=== PATIENT | female | born 1980 | race Caucasian/White ===

== ENCOUNTER 2019-10-14 09:19 | Outpatient (CLI) | payer BC, SELFPAY ==
--- NOTE | ~2019-10-14 | XR_ITS ---
EXAMINATION: XR chest 2V EXAM DATE: 10/14/2019 10:45 INDICATION: TECHNIQUE: Frontal and lateral projections of the chest obtained and reviewed. Comparison is made to prior examination from 04/21/2010. FINDINGS: The lungs are clear. There are no pleural effusions. The cardiomediastinal silhouette is within normal limits. There is no pneumothorax suspected. The bones and soft tissues are unremarkab le. IMPRESSION: Normal chest x-ray exam. Reviewed, dictated and finalized at location A. IMPRESSION: Normal chest x-ray exam.
[2019-10-14 10:41] LABS: Hematocrit 47.1 % (35.0-49.0); Hemoglobin 15.6 g/dL (12.0-15.0); Mean Corpuscular HGB Conc 33.1 g/dL (32.0-36.0); Mean Corpuscular Hemoglobin 32.3 pg (27.0-31.0); Mean Corpuscular Volume 97.5 fL (78.0-102.0); Mean Platelet Volume 12.2 fl (9.2-11.8); Platelet Count Result 173 K/mm3 (150-420); Red Blood Count 4.83 M/mm3 (4.20-5.40); Red Cell Distribution Width 11.7 % (11.6-14.4); White Blood Count 4.9 K/mm3 (4.8-10.8)
[2019-10-14 11:11] LABS: Band Neutrophils Percent 0 % (0-6); Basophils Absolute Manual 0.04 K/mm3 (0-0.1); Basophils Percent Manual 1 % (0-1); Eosinophils Absolute Manual 0.04 K/mm3 (0.02-0.5); Eosinophils Percent Manual 1 % (1-6); Lymphocytes Absolute Manual 1.96 K/mm3 (1.1-4.5); Lymphocytes Percent Manual 40 % (18-44); Monocytes Absolute Manual 0.93 K/mm3 (0.1-0.90); Monocytes Percent Manual 19 % (3-9); Neutrophils Absolute Manual 1.91 K/mm3 (1.7-7.2); Neutrophils Percent Manual 39 % (46-73); Platelet Estimate Adequate (Adequate); Total Cells Counted 100
[2019-10-14 11:38] LABS: Alanine Aminotransferase 21 U/L (14-59); Albumin Level 3.9 g/dL (3.4-5.0); Alkaline Phosphatase 62 U/L (46-116); Anion Gap 6 mmol/L (8-16); Aspartate Amino Transferase 19 U/L (15-37); Bilirubin,Total 0.2 mg/dL (0.00-1.00); Blood Urea Nitrogen 9 mg/dL (7-18); Calcium 8.7 mg/dL (8.5-10.1); Carbon Dioxide 30 mmol/L (21-32); Chloride 102 mmol/L (98-108); Estimated Glomerular Filt Rate > 60; Glucose 82 mg/dL (70-99); Lactate Dehydrogenase 137 U/L (81-234); Osmolality Calculated 283 mOsm/kg (285-295); Potassium 4.4 mmol/L (3.5-5.1); Sodium 138 mmol/L (136-145); Total Protein 6.8 g/dL (6.4-8.2)
[2019-10-15 18:19] LABS: SARS-CoV-2 RNA PCR Positive
== END 2019-10-14 09:20 | disposition home or self-care (01) ==
PROVIDERS: PCP Internal Medicine; Visit Provider Internal Medicine
DX: U07.1 COVID-19 (principal); R06.02 Shortness of breath; R05 Cough
CPT/HCPCS: 36415; 71046; 80053; 83615; 85025; 87635; C9803; U0003

== ENCOUNTER 2019-10-30 15:31 | Outpatient (CLI) | payer BC, SELFPAY ==
[2019-11-01 18:02] LABS: SARS-CoV-2 RNA PCR Positive
== END 2019-10-30 15:32 | disposition home or self-care (01) ==
LOC: CHSLAB 15:34
PROVIDERS: PCP Internal Medicine; Visit Provider Internal Medicine
DX: U07.1 COVID-19 (principal)
CPT/HCPCS: 87635; C9803; U0003

== ENCOUNTER 2019-11-06 14:47 | Outpatient (CLI) | payer BC, SELFPAY ==
[2019-11-07 12:28] LABS: SARS-CoV-2 RNA PCR Negative
== END 2019-11-06 14:48 | disposition home or self-care (01) ==
LOC: CHSLAB 14:49
PROVIDERS: PCP Internal Medicine; Visit Provider Internal Medicine
DX: Z20.828 Contact with and (suspected) exposure to other viral communicable diseases (principal)
CPT/HCPCS: 87635; C9803; U0003

== ENCOUNTER 2020-12-14 10:15 | Outpatient (CLI) | payer BC, SELFPAY ==
[2020-12-14 11:24] LABS: SARS-CoV-2 RNA PCR Negative (Negative)
== END 2020-12-14 10:16 | disposition home or self-care (01) ==
LOC: CHSLAB 10:18
PROVIDERS: PCP Internal Medicine; Visit Provider Internal Medicine
DX: J06.9 Acute upper respiratory infection, unspecified (principal); Z20.822 Contact with and (suspected) exposure to COVID-19
CPT/HCPCS: C9803; U0003; U0005

== ENCOUNTER 2021-03-14 12:49 | Outpatient (CLI) | payer BC, SELFPAY ==
--- NOTE | ~2021-03-14 | MM_ITS ---
EXAMINATION: MM screening matthew BI w ibis HISTORY: Screening mammogram TECHNIQUE: Craniocaudal and mediolateral oblique 3-D tomosynthesis images were obtained and synthetic 2-D images were generated. CAD analysis was submitted and interpreted. COMPARISON: No prior mammogram is available for comparison at this institution. BREAST PARENCHYMAL COMPOSITION: The breasts are heterogeneously dense, which may obscure small masses . FINDINGS: RIGHT BREAST: There is focal asymmetry in the middle third of the central breast. LEFT BREAST: There is no evidence of suspicious mass, calcification, or architectural distortion to s uggest malignancy. IMPRESSION: 1. Focal asymmetry of the right breast which may represent the patient's baseline however no comparis on is currently available. 2. Comparison with prior mammograms is necessary. BI-RADS Category 0: Incomplete: Needs comparison with prior mammograms. Reviewed, dictated and finalized at location A. OPERATOR IMPRESSION: 1. Focal asymmetry of the right breast which may represent the patient's baseli ne however no comparison is currently available. 2. Comparison with prior mammograms is necessary. BI-RADS Category 0: Incomplete: Needs comparison with prior mammograms.
== END 2021-03-14 12:50 | disposition home or self-care (01) ==
LOC: CHSIMG 12:50
PROVIDERS: PCP Internal Medicine; Visit Provider Student in an Organized Health Care Education/Training Program
DX: Z12.31 Encounter for screening mammogram for malignant neoplasm of breast (principal)
CPT/HCPCS: 77063; 77067

== ENCOUNTER 2021-03-18 08:53 | Outpatient (CLI) | payer BC, SELFPAY ==
--- NOTE | ~2021-03-18 | MMUS_ITS ---
EXAMINATION: MM diagnostic matthew RT w ibis, US breast RT limited HISTORY: Focal asymmetry of the right breast on baseline screening mammogram TECHNIQUE: Additional 3-D tomosynthesis images of the right breast were performed and synthetic 2-D i mages were generated. CAD analysis was submitted and interpreted. High resolution limited right breas t ultrasound was performed. COMPARISON: 03/14/2021 FINDINGS: MAMMOGRAPHIC FINDINGS: There appears to be an 11 mm obscured mass in the middle third of the central breast approximately 3. 5 cm deep to the nipple. No suspicious calcification or architectural distortion are identified. ULTRASOUND: There is a 10 mm cyst at the 12:00 location corresponding to the mammographic finding in question. Mu ltiple additional smaller cysts are noted in the central breast IMPRESSION: 1. No mammographic or sonographic evidence of malignancy. 2. Recommend routine screening mammography in one year. BI-RADS Category 2: Benign finding(s). Reviewed, dictated and finalized at location A. FACTURING SUPERVISOR 2ND SHIFT IMPRESSION: 1. No mammographic or sonographic evidence of malignancy. 2. Recommend routine screening mammography in one year. BI-RADS Category 2: Benign finding(s).
[2021-03-18 13:09] LABS: Influenza Control Valid (Valid)
[2021-03-18 13:19] LABS: SARS-CoV-2 Ag Positive (Negative)
== END 2021-03-18 08:54 | disposition home or self-care (01) ==
PROVIDERS: PCP Internal Medicine; Visit Provider Student in an Organized Health Care Education/Training Program
DX: U07.1 COVID-19 (principal); R05.9 Cough, unspecified; R50.9 Fever, unspecified; R92.8 Other abnormal and inconclusive findings on diagnostic imaging of breast
CPT/HCPCS: 36415; 76642; 77061; 77065; 87426; 87804; C9803; G0279

== ENCOUNTER 2021-03-22 14:10 | Outpatient (CLI) | payer BC, SELFPAY | END 2021-03-22 14:11 | disposition home or self-care (01) | LOC: CHSLAB 14:13 | PROVIDERS: PCP Internal Medicine; Visit Provider Nurse Practitioner Family | DX: J06.9 Acute upper respiratory infection, unspecified (principal); U07.1 COVID-19 | CPT/HCPCS: 87081; 87880 ==

== ENCOUNTER 2021-03-30 15:55 | Outpatient (CLI) | payer BC, SELFPAY ==
--- NOTE | ~2021-03-30 | XR_ITS ---
EXAMINATION: XR chest 2V DATE: 03/30/2021 16:23 INDICATION: Central chest pain. Shortness of breath. Recent COVID-19 pneumonia. TECHNIQUE: Frontal and lateral views of the chest were obtained. COMPARISON: Chest 2 views 10/14/2019 FINDINGS: The chest demonstrates clear lungs without pneumonia, pleural effusion, or pneumothorax. Th e heart size is normal. There is mild chronic anterior wedging of a midthoracic vertebral body. IMPRESSION: 1. No acute cardiopulmonary disease. Reviewed, dictated and finalized at location E. GE CONTROL OPERATOR
== END 2021-03-30 15:56 | disposition home or self-care (01) ==
LOC: CHSIMG 15:56
PROVIDERS: PCP Internal Medicine; Visit Provider Internal Medicine
DX: J98.8 Other specified respiratory disorders (principal); U09.9 Post COVID-19 condition, unspecified
CPT/HCPCS: 71046

== ENCOUNTER 2021-11-21 08:58 | Outpatient (CLI) | payer BC, SELFPAY ==
--- NOTE | 2021-12-21 15:26 | WPDHOLTEREM ---
Holter/Event Monitor Holter/Event Monitor Date of procedure: 11/21/21 Holter/Event Procedure: Event Monitor Indications: Palpitations Conclusion: 1. 21 days event monitor between 11/21/21-12/20/21. There are 26 available transmissions for analysis. 2. Underlying rhythm is sinus rhythm. HR range 50-120 bpm; average HR 81 bpm. 3. There are occasional premature supraventricular complexes with total burden of <1%. No supraventricular tachycardia. 4. There are occasional premature ventricular complexes with total burden of 1%. No ventricular tachycardia. 5. No sinoatrial or atrioventricular blocks. No significant pauses greater than 2 seconds. 6. Patient reports 3 episodes of symptoms of heart racing which demonstrate sinus rhythm, HR range 78-118 bpm.
== END 2021-11-21 08:59 | disposition home or self-care (01) ==
LOC: CHSCARD 09:01
PROVIDERS: PCP Internal Medicine; Visit Provider Internal Medicine
DX: R00.2 Palpitations (principal)
CPT/HCPCS: 93270

== ENCOUNTER 2023-09-11 01:49 | Day surgery (SDC) | payer BC, SELFPAY ==
[2023-08-28 15:01] VITALS: BMI 25.6
[2023-09-11 10:22] VITALS: BP 107/59; PULSE 82; RESP 18; TEMP 36.6; O2SAT 100; BMI 25.0
[2023-09-11] MEDS: LACTATED RINGERS 1,000 ML 150 ML IV CONT (10:29)
--- NOTE | 2023-09-11 10:29 | WPDANESEPPF ---
Anes - Initial Pre Proc Eval Procedure: Operation Date: 09/11/23 11:30 Proposed Procedures p Screening Colonoscopy - Franco Bowles DO Date/Time: 09/11/23 10:29 Surgeon: Franco Bowles DO Pre Op Diagnosis: Neoplasm screening Patient Data Age: 43 Gender: F Height: 1.57 m Weight: 62 kg Last Vital Signs Temp 36.6 C 09/11/23 10:22 Pulse 82 09/11/23 10:22 Resp 18 09/11/23 10:22 BP 107/59 L 09/11/23 10:22 Pulse Ox 100 09/11/23 10:22 O2 Del Method Room Air 09/11/23 10:22 Allergies Allergy/AdvReac Type Severity Reaction Status Date / Time No Known Allergies Allergy Mild Verified 09/11/23 10:21 Home Medications Medication Instructions Recorded Confirmed Type cetirizine 10 mg capsule (Zyrtec) 10 mg PO DAILY 11/24/20 09/11/23 History escitalopram oxalate 20 mg tablet 20 mg PO DAILY 11/24/20 09/11/23 History (Lexapro) montelukast 10 mg tablet 10 mg PO DAILY 06/08/23 09/11/23 History (Singulair) Patient hx anesthesia problems: none Family hx anesthesia problems: none Results Review: All pre-operative results and documents have been reviewed as part of the pre-operative evaluation. [facility] Past Medical History Medical History Anxiety Depression Hernia Vaginal delivery x 3 Surgical History Surgical History H/O hernia repair History of endometrial ablation Status post loop electrosurgical excision procedure (LEEP) of cervix [place] teeth extracted Family History Family History Mother Family history of hypercholesterolemia Hypertension Grandparent Cerebrovascular accident Carcinoma of colon Breast cancer Social History Social History Smoking status: Former smoker Smoking end date: 02/19/01 Alcohol intake: current Living arrangements: with family Anes - Eval Final PreProcedure Day of Procedure 09/11/23 10:29 Heart: regular rate and rhythm Lungs: clear to auscultation Airway: Mallampati scale class 1 Neurological: alert and oriented Last oral intake: >/= 8 hours ASA classification: II Emergent: no Anesthetic plan: proceed Anesthesia type and monitoring: general and standard monitoring Results Review: All pre-operative results and documents have been reviewed as part of the pre-operative evaluation. Informed Consent: The patient's anesthetic plan and its attendant risks and benefits were discussed with the patient/family/POA. Questions were solicited and answers provided to the satisfaction of the patient/family/POA.
--- NOTE | 2023-09-11 10:53 | P.PNAN_ITS ---
Anes - Eval Final PreProcedure Day of Procedure 09/11/23 10:53 Patient weight: normal Heart: regular rate and rhythm Lungs: clear to auscultation Airway: Mallampati scale class 1 Neurological: alert and oriented Last oral intake: >/= 8 hours ASA classification: II Emergent: no Anesthetic plan: proceed Anesthesia type and monitoring: general GIVS and standard monitoring Results Review: All pre-operative results and documents have been reviewed as part of the pre- operative evaluation. Informed Consent: The patient's anesthetic plan and its attendant risks and benefits were discussed with the patient/family/POA. Questions were solicited and answers provided to the satisfaction of the patient/family/POA.
--- NOTE | 2023-09-11 11:36 | PM.IMHP ---
H&P: HPI History of Present Illness Date/Time: 09/11/23 11:36 Chief Complaint: screening for colorectal cancer Narrative: this is a 43-year-old woman who presents for colonoscopy. she has never had a colonoscopy before. She denies any first-degree family members with colon cancer. She denies any hematochezia melena. Review of Systems Review of Systems: All systems reviewed & are unremarkable except as noted in HPI and below Constitutional: Constitutional: Denies chills, Denies fever(s), Denies headache(s) and Denies weight loss Eyes: Eyes: Denies change in vision ENT: Denies dizziness, Denies headache(s), Denies neck mass and Denies throat swelling Cardiovascular: Cardiovascular: Denies chest pain, Denies lightheadedness and Denies dyspnea Respiratory: Respiratory: Denies cough, Denies dyspnea and Denies wheezing Gastrointestinal: Gastrointestinal: Denies abdominal pain, Denies change in bowel habits, Denies nausea and Denies vomiting Genitourinary: Genitourinary: Denies hematuria and Denies dysuria Musculoskeletal: Musculoskeletal: Reports as per HPI Integumentary/Breasts: Skin/Breast: Reports as per HPI Neurologic: Denies dizziness and Denies headache(s) Allergic/Immunologic: Allergic/Immunologic: Denies throat swelling and Denies wheezing PMF Past Medical History Medical History Anxiety Depression Hernia Vaginal delivery x 3 Surgical History Surgical History H/O hernia repair History of endometrial ablation Status post loop electrosurgical excision procedure (LEEP) of cervix [place] teeth extracted Family History Family History Mother Family history of hypercholesterolemia Hypertension Grandparent Cerebrovascular accident Carcinoma of colon Breast cancer Social History Social History Smoking status: Former smoker Smoking end date: 02/19/01 Alcohol intake: current Living arrangements: with family Meds Home Medications and Allergies Home Medications Medication Instructions Recorded Confirmed Type cetirizine 10 mg capsule (Zyrtec) 10 mg PO DAILY 11/24/20 09/11/23 History escitalopram oxalate 20 mg tablet 20 mg PO DAILY 11/24/20 09/11/23 History (Lexapro) montelukast 10 mg tablet 10 mg PO DAILY 06/08/23 09/11/23 History (Singulair) Allergies Allergy/AdvReac Type Severity Reaction Status Date / Time No Known Allergies Allergy Mild Verified 09/11/23 10:21 Vital Signs Vital Signs - 24 hr 09/11/23 10:22 Temperature 36.6 C Pulse Rate 82 Respiratory Rate 18 Blood Pressure 107/59 L Pulse Oximetry 100 Oxygen Delivery Room Air Exam Const: General: no acute distress and alert Orientation/consciousness: patient oriented x3 HENMT: Head: normocephalic and atraumatic Ears: hearing grossly normal bilaterally Face/Nose/Sinus: Normal nares present Mouth: Yes Normal oral and palatal mucosa present Eyes: Periorbital: periorbital findings normal Sclera: sclerae normal EOM: EOMs intact bilaterally Neck: Neck: normal visual inspection, no lymphadenopathy and trachea midline Chest: Chest palpation & inspection: normal inspection of the chest Resp: Effort & Inspection: normal respiratory effort Auscultation: clear to auscultation bilaterally Cardio: Jugular venous distension: no JVD Rate: regular rate Rhythm: regular rhythm Heart sounds: S1 normal heart sound present and S2 normal heart sound present Peripheral pulses: Peripheral pulses 2+ throughout GI: Inspection: normal to inspection GI Palp: Yes Soft to palpation, No Tenderness to palpation present (GI), No Guarding due to palpation present (GI) and No Rebound tenderness present Percussion: Yes normal to percussion Auscultation: normal bowel sounds : General: Yes no CVA t
[2023-09-11 12:14] VITALS: BP 86/58; PULSE 69; RESP 20; O2SAT 98
[2023-09-11 12:24] VITALS: BP 90/53; PULSE 65; RESP 16; O2SAT 100
[2023-09-11 12:34] VITALS: BP 90/60; PULSE 61; RESP 17; O2SAT 100
== END 2023-09-11 12:37 | disposition home or self-care (01) ==
PROVIDERS: PCP Internal Medicine; Visit Provider Surgery
PROC: 0DJD8ZZ Inspection of Lower Intestinal Tract, Via Natural or Artificial Opening Endoscopic (ICD-10-PCS; CPT 45378; principal; 2023-09-11 11:30)
DX: Z12.11 Encounter for screening for malignant neoplasm of colon (principal); F41.9 Anxiety disorder, unspecified; F32.A Depression, unspecified; Z87.891 Personal history of nicotine dependence
CPT/HCPCS: 45378; J7120

== ENCOUNTER 2023-10-03 08:20 | Outpatient (CLI) | payer BC, SELFPAY ==
--- NOTE | ~2023-10-03 | MM_ITS ---
EXAMINATION: MM screening matthew BI w ibis HISTORY: Screening TECHNIQUE: Craniocaudal and mediolateral oblique 3-D tomosynthesis images were obtained and synthetic 2-D images were generated. CAD analysis was submitted and interpreted. COMPARISON: Comparison to multiple prior studies sequentially, with oldest reviewed study dated 03/14. BREAST PARENCHYMAL COMPOSITION: Not dense: There are scattered areas of fibroglandular density. FINDINGS: There are developing asymmetries in the right breast which have progressed since prior exam ination. The left breast is stable without evidence for malignancy. IMPRESSION: 1. Developing right breast asymmetries. 2. Additional mammographic views and possible breast ultrasound are recommended. BI-RADS Category 0: Incomplete: Needs additional imaging evaluation. Reviewed, dictated and finalized at location B. IMPRESSION: 1. Developing right breast asymmetries. 2. Additional mammographic views and possible breast ultrasound are recommended . BI-RADS Category 0: Incomplete: Needs additional imaging evaluation.
== END 2023-10-03 08:21 | disposition home or self-care (01) ==
LOC: CHSIMG 08:23
PROVIDERS: PCP Internal Medicine; Visit Provider Nurse Practitioner Family
DX: Z12.31 Encounter for screening mammogram for malignant neoplasm of breast (principal); R92.8 Other abnormal and inconclusive findings on diagnostic imaging of breast
CPT/HCPCS: 77063; 77067

== ENCOUNTER 2023-10-08 09:45 | Outpatient (CLI) | payer BC, SELFPAY ==
--- NOTE | ~2023-10-08 | MMUS_ITS ---
EXAMINATION: MM diagnostic matthew RT w ibis, US breast RT complete HISTORY: Follow-up right breast mass TECHNIQUE: Additional 3-D tomosynthesis images of Limited right were performed and synthetic 2-D imag es were generated. CAD analysis was submitted and interpreted. High resolution complete right breast ultrasound was performed. COMPARISON: Comparison to multiple prior studies sequentially, with oldest reviewed study dated 03/14. BREAST PARENCHYMAL COMPOSITION: Not dense: There are scattered areas of fibroglandular density. FINDINGS: MAMMOGRAPHIC FINDINGS: There is a centrally located mass in the right breast, partially obscured by fibroglandular tissue. T here are no suspicious calcifications or architectural distortion. ULTRASOUND: Complete US of all 4 quadrants of the breast/s and retroareolar region was reviewed. And the subareol ar location of the right breast there are small cysts, largest measuring 5 mm. There is also a 1.3 cm cyst. No suspicious masses are identified to suggest malignancy. IMPRESSION: 1. No evidence for malignancy in the right breast. Benign findings. 2. Routine yearly screening mammogram and regular clinical breast examination are recommended. BI-RADS Category 2: Benign finding(s). Reviewed, dictated and finalized at location B. IMPRESSION: 1. No evidence for malignancy in the right breast. Benign findings. 2. Routine yearly screening mammogram and regular clinical breast examination a re recommended. BI-RADS Category 2: Benign finding(s).
== END 2023-10-08 09:46 | disposition home or self-care (01) ==
LOC: CHSIMG 09:46
PROVIDERS: PCP Internal Medicine; Visit Provider Obstetrics & Gynecology
DX: R92.8 Other abnormal and inconclusive findings on diagnostic imaging of breast (principal)
CPT/HCPCS: 76641; 77061; 77065; G0279

== ENCOUNTER 2023-11-24 11:42 | Emergency (ER) | payer BC, SELFPAY ==
[2023-11-24 11:42] VITALS: BP 130/78; PULSE 78; RESP 16; TEMP 37; O2SAT 98
--- NOTE | 2023-11-24 11:47 | ED.HEATRA ---
HPI - Head Injury General Chief complaint: Head Injury Stated complaint: head injury Time Seen by Provider: 11/24/23 11:46 Source: patient and family Mode of arrival: ambulatory Limitations: no limitations History of Present Illness HPI Narrative: this is a 38-year-old female who presents with mild head injury after she stepped on rake and the handle struck her in the left frontal forehead area patient did not lose consciousness or , did take some ibuprofen prior to arrival otherwise, bruising no blurry vision no headache she does feel nauseous. No other injuries neurologically intact. Complaint: head injury Onset (ago): hour(s) Place: outdoors Loss of Consciousness: no Location of injury: frontal Severity: mild Quality: dull Radiation: none Other Injuries: none Related Data Home Medications Medication Instructions Recorded Confirmed escitalopram oxalate 20 mg tablet 20 mg PO DAILY 11/24/20 11/24/23 (Lexapro) montelukast 10 mg tablet 10 mg PO DAILY 06/08/23 11/24/23 (Singulair) Allergies Allergy/AdvReac Type Severity Reaction Status Date / Time No Known Allergies Allergy Mild Verified 11/24/23 11:58 Review of Systems Review of Systems: All systems reviewed & are unremarkable except as noted in HPI and below PMFSH Past Medical History Medical History Anxiety Depression Hernia Vaginal delivery x 3 Surgical History Surgical History H/O hernia repair History of endometrial ablation Status post loop electrosurgical excision procedure (LEEP) of cervix [place] teeth extracted Family History Family History Mother Family history of hypercholesterolemia Hypertension Grandparent Cerebrovascular accident Carcinoma of colon Breast cancer Social History Social History Smoking status: Former smoker Smoking end date: 02/19/01 Alcohol intake: current Living arrangements: with family Exam Const: General: healthy appearing, no acute distress and alert Nutritional Appearance: well nourished Orientation/consciousness: patient oriented x3 Limitations: no limitations HENMT: Head: normal to inspection Ears: external ears normal Face/Nose/Sinus: Normal external nose present Face and sinus: normal facial exam Mouth: Yes Normal oral and palatal mucosa present Eyes: Conjunctivae: conjunctivae normal Pupils: Equal, round and reactive pupils present EOM: EOMs intact bilaterally Direct Ophthalmoscopy: no photophobia Neck: Neck: normal visual inspection, no lymphadenopathy and no meningeal signs Chest: Chest palpation & inspection: normal inspection of the chest Resp: Effort & Inspection: normal respiratory effort Auscultation: clear to auscultation bilaterally Cardio: Rate: regular rate Rhythm: regular rhythm GI: GI Palp: Yes Soft to palpation Auscultation: normal bowel sounds Skin: General skin exam: normal color Rashes: no rashes Wounds: no wounds Neuro: General: patient oriented x3, moves all extremities, no meningeal signs and no focal motor deficits Extrem: General: normal to inspection Course Course Emergency Course: Neurologically patient is intact currently no headache does feel some slight pressure in her forehead and nauseous, and given a dose of Zofran. Vital Signs Vital signs: Vital Signs Temperature 37.0 C 11/24/23 11:42 Pulse Rate 78 11/24/23 11:42 Respiratory Rate 16 11/24/23 11:42 Blood Pressure 130/78 11/24/23 11:42 Pulse Oximetry 98 11/24/23 11:42 Oxygen Delivery Room Air 11/24/23 11:42 Temperature 37.0 C 11/24/23 11:42 Pulse Rate 68 11/24/23 12:43 Respiratory Rate 16 11/24/23 12:43 Blood Pressure 110/66 11/24/23 12:43 Pulse Oximetry 98 11/24/23 12:43 Oxygen Delivery Room Air 11/23
[2023-11-24] MEDS: ONDANSETRON HCL ODT 4 MG TABLET PO (11:58)
[2023-11-24 12:43] VITALS: BP 110/66; PULSE 68; RESP 16; O2SAT 98
--- NOTE | 2023-11-24 12:50 | PC.NURSE ---
PT REPORTS THE SPINNING HAS IMPROVED WELL THE NAUSEA.
== END 2023-11-24 12:43 | disposition home or self-care (01) ==
PROVIDERS: Emergency Provider Emergency Medicine; PCP Internal Medicine
DX: S09.90XA Unspecified injury of head, initial encounter (principal); F41.9 Anxiety disorder, unspecified; F32.A Depression, unspecified; Z79.899 Other long term (current) drug therapy; Z87.891 Personal history of nicotine dependence; W22.8XXA Striking against or struck by other objects, initial encounter
CPT/HCPCS: 99283; A9270

== ENCOUNTER 2024-10-07 08:00 | Outpatient (CLI) | payer BC, SELFPAY ==
--- NOTE | ~2024-10-07 | MM_ITS ---
EXAMINATION: MM screening matthew BI w ibis HISTORY: Screening mammogram TECHNIQUE: Craniocaudal and mediolateral oblique 3-D tomosynthesis images were obtained and synthetic 2-D images were generated. CAD analysis was submitted and interpreted. COMPARISON: 10/03/2023, 03/14/2021 BREAST PARENCHYMAL COMPOSITION:Dense: The breasts are heterogeneously dense, which may obscure small masses. FINDINGS: No suspicious mass, calcification, or architectural distortion are identified in either breast to suggest malignancy. There has been no suspicious interval change. IMPRESSION: No mammographic evidence of malignancy. Recommend routine screening mammography in one year. BI-RADS Category 1: Negative Reviewed, dictated and finalized at location .
--- OUTSIDE RECORDS SUMMARY | 2024-10-07 08:16 | XMS_ITS | Clinical Summary ---
Author Organization [facility] Address [address] [place] [address] Care Team Providers Care Quality Control Representative Name Role Phone Shanta Henry MD Primary Care Provider [phone] Allergies Active Allergy Reactions Criticality Noted Date Comments Cephalexin Hives Medium 06/28/2018 Medications LORazepam (ATIVAN) 0.5 mg tablet take 1 tablet by ORAL route every 4 hours as needed 90 0 6 Active Additional Information Patient not taking.Reported on 05/09/2021 escitalopram (LEXAPRO) 20 mg tablet Take 1 tablet (20 mg total) by mouth daily. 30 tablet 3 7 Active montelukast (SINGULAIR) 10 mg tablet Take 10 mg by mouth nightly Active cetirizine 10 mg capsule Take by mouth Active hydrocortisone 2.5 % creamIndications :Grade III hemorrhoids Apply topically 2 (two) times a day 3.5 g 2 2 Active Active Problems Problem Noted Date Diagnosed Date Grade III hemorrhoids 06/28/2018 Assessment & Plan (05/09/2021 2:08 PM CDT): III with a skin tag at 6 O'Clock Sx treatment [place] Assessment & Plan (06/28/2018 2:39 PM CDT): Today II or III roids with single external skin tag. Discussed doing nothing, IRC, and surgery. She opts for trial of IRC Elevated LFTs 06/28/2018 Assessment & Plan (06/28/2018 2:38 PM CDT): ransient elevation transaminases during episode of severe back pain and heavy analgesics. All reverted to normal. sono 06/04 wnl. Hemorrhoids 06/28/2018 Overview (06/28/2018): Added automatically from request for surgery [id number] Pain of upper abdomen 05/19/2015 Overview (05/25/2016): Upper abdominal pain Exomphalos 02/24/2015 Overview (05/25/2016): Umbilical hernia Palpitations 07/05/2013 Overview (05/24/2016): Palpitations Atypical chest pain 07/05/2013 Overview (05/26/2016): Atypical chest pain Surgical History Surgery Date Site/Laterality Comments LAPAROSCOPY exploratory lap UMBILICAL HERNIA REPAIR Repair umbilical hernia ABLATION uterine ablation Medical History Medical History Date Comments Hx Other Medical 2010 [employer] Anxiety Environmental and seasonal allergies Family History Medical History Relation Name Comments Hypertension Mother Alcohol abuse Other 1 Family history of Alcoholism; Cancer Other 2 Family history of Cancer; Hypertension Other 3 Family history of Hypertension; Arthritis Other 4 Family history of Arthritis; Stroke Other 5 Family history of Stroke; Diabetes Other 6 Family history of Diabetes mellitus; Heart disease Other 7 Family history of Heart disease; Mental illness Other 7 Colon cancer Paternal Grandmother Melanoma Paternal Grandmother Melanom a; Cause of : Melanoma Relation Name Status Comments Mother Other 1 Other 2 Other 3 Other 4 Other 5 Other 6 Other 7 Paternal Grandmother Social History Tobacco Use Types Packs/Day Years Used Date Smoking Tobacco: Former Smokeless Tobacco: Never Alcohol Use Standard Drinks/Week Comments Yes 0 (1 standard drink = 0.6 oz pur e alcohol) AUDIT-C Answer Date Recorded Q1: How often do you have a drink containing alc ohol? Monthly or less 05/07/2020 Average Number of Drinks Not on file 021 Frequency of Binge Drinking Not on file 04/19 Comments Unknown Sex and Gender Information Value Date Recorded Sex Assigned at Not on file Legal Sex Female 12:50 AM [employer] Gender Identity Not on file Sexual Orientation Not on file Obstetrics History Last Filed Vital Signs Vital Sign Reading Time Taken Comments Blood Pressure 112/70 05/09/2021 1:44 PM CDT Pulse 79 05/09/2021 1:44 PM CDT Temperature 36.1 C (97 F) 05/07/2020 8:29 AM CDT Respiratory Rate 18 08/01/2018 8:30 AM CDT Oxygen Saturation 98% 05/09/2021 1:44 PM CDT Inhaled Oxygen Concentration - - Weight 66 kg (145 lb 9.6 oz) 05/09/2021 1:44 PM CDT Height 157.5 cm (5' 2) 05/09/2021 1:44 PM CDT Body Mass Index 26.63 05/09/2021 1:44 PM CDT Plan of Treatment Not on file Insurance [employer] [place] Advance Directives For more information, please contact: [phone] * Full Code (Latest Code Status on File) Date Activated Date Inactivated Comments 08/01/2018 8:20 AM 08/01/2018 1:23 PM * Full Code Date Activated Date Inactivated Comments 08/01/2018 8:20 AM 08/01/2018 8:20 AM Care Teams Quality Control Representative Relationship Specialty Start Date End Date Shanta Henry MD PCP - General Internal Medicine 06/28/18
== END 2024-10-07 08:01 | disposition home or self-care (01) ==
LOC: CHSIMG 08:00
PROVIDERS: PCP Internal Medicine; Visit Provider Obstetrics & Gynecology
DX: Z12.31 Encounter for screening mammogram for malignant neoplasm of breast (principal)
CPT/HCPCS: 77063; 77067